=== PATIENT | female | born 1950 | race Caucasian/White ===

== ENCOUNTER 2016-03-19 14:12 | Emergency (ER) | payer BC ==
[~2016-03-19] VITALS: Ht 167.6 cm; Wt 51.5 kg
[~2016-03-19 14:12] MED LIST: ATENOLOL25 MG PO; LORAZEPAM0.5 MG PO
[2016-03-19 15:43] LABS: HEMATOCRIT 35.9 % (36.0-46.0); MCH 30.2 PG (29.0-34.0); MCHC 32.6 G/DL (30.0-36.0); MCV 92.5 FL (83-99); MEAN PLAT.VOLUME 10.5 uM^3 (9.5-12.4); PLATELET COUNT 229 K/uL (156-360); RBC DIS.WIDTH-CV 12.1 % (11.8-14.6); RBC DIS.WIDTH-SD 39.6 % (39-53); RED BLOOD COUNT 3.88 M/uL (3.80-5.20); WHITE BLOOD COUNT 6.2 K/uL (4.1-10.2)
[2016-03-19 15:51] LABS: CHLORIDE 108 mEq/L (99-109); POTASSIUM 4.7 mEq/L (3.7-5.4); SODIUM 141 mEq/L (136-147)
[2016-03-19 15:53] LABS: GLUCOSE 96 mg/dL (70-99)
[2016-03-19 15:54] LABS: ANION GAP 8 MEQ/L (2-14)
[2016-03-19 15:55] LABS: TOTAL BILIRUBIN 0.5 mg/dL (0.0-1.0)
[2016-03-19 15:56] LABS: ALKALINE PHOSPHATASE 58 IU/L (3-129)
[2016-03-19 15:57] LABS: GFR ESTIMATE (CALCULATED) > 59 mL/min/
[2016-03-19 15:58] LABS: UREA NITROGEN (BUN) 17 mg/dL (9-23)
[2016-03-19 16:00] LABS: LIPASE 67 U/L (1.0-51.0)
[2016-03-19 16:48] LABS: ADD MIUA? YES; BILIRUBIN SMALL; BLOOD NEGATIVE; COLOR DK YELLOW ((YELLOW)); GLUCOSE (STRIP) NEGATIVE; KETONES TRACE; LEUKOCYTES SMALL; NITRITE NEGATIVE; PROTEIN (STRIP) TRACE; SPECIFIC GRAVITY 1.031 (1.000-1.030); UROBILINOGEN 0.2 MG/DL (0.2-1.0)
[2016-03-19 18:42] LABS: CRYSTALS PRESENT
[2016-03-19 18:43] LABS: BACTERIA RARE; CALCIUM OXALATE CRYSTALS 2+; CASTS PRESENT /LPF; EPITHELIAL CELLS 1+; MUCUS 3+; RED BLOOD CELLS 0-5 /HPF (0-5); UCUL ADDED? NO; WHITE BLOOD CELLS 0-5 /HPF (0-5)
[2016-03-19] MEDS ORDERED: VANCOCIN HCL125 MG PO (18:47)
[2016-03-19 19:22] VITALS: BP 142/44
== END 2016-03-19 19:23 | disposition home or self-care (01) ==
LOC: EXP 14:12 → EME 14:12 → EXP 19:23
DX: A04.7 Enterocolitis due to Clostridium difficile (principal); I34.1 Nonrheumatic mitral (valve) prolapse
CPT/HCPCS: 80053; 81003; 83690; 85027; 99281; 99284